=== PATIENT | male | born 1985 | race American Indian/Alaskan Native ===

== ENCOUNTER 2017-08-28 04:32 | Emergency (ER) | payer SELFPAY ==
--- NOTE | 2017-08-28 06:40 | XRay Report ---
FINAL REPORT EXAM: XR HAND 3+V RT HISTORY: laceration TECHNIQUE: Three views of the right hand were submitted. FINDINGS: There is no evidence of fracture or radiopaque foreign body. The wrist joint appears intact. There is bandage material overlying wrist and at the level of the 1st and 2nd metacarpals. IMPRESSION: No evidence of fracture or radiopaque foreign body.
--- NOTE | 2017-08-28 07:52 | Emergency Department Report ---
ED Upper Extremity Inj HPI - General Chief Complaint: Extremity Injury, Upper Stated Complaint: R HAND LAC Source: patient Mode of arrival: Ambulatory Limitations: No Limitations - History of Present Illness Initial Comments: 32 y/o M presents s/p a right thumb proximal dorsal region laceration that occured 2 days ago. Pt states that he was looking for something under the seat and there was an open razor and he lacerated the area. Pt states that he was not seen by a doctor since the incident. He states that he bumped the area on the wall yesterday and the area has not stopped bleeding. He states that he is able to move his thumb without issues. No numbness, tingling, or loss of sensation. UTD with tetanus 4 years ago. Denies any pain at the site. No fever , chills, pus, or oozing at the site was reported. Pt has not tried anything for the symptoms at this time. No lightheadedness, no dizziness. On no blood thinners or medications at this time. NKDA. NULL Complaint: Injury to:: right, hand -: days(s) (2) Other Extremity Injury: Hand: Right (at the proximal aspect of the right thumb) Other Injuries: none Handedness: left Place: home Severity scale (0 -10): 0 Context: laceration Associated Symptoms: denies: weakness, numbness, neck pain, suspects foreign body, nausea/vomiting, heard/felt popping sensat Treatments Prior to Arrival: other (none) - Related Data Previous Rx's Medication Instructions Recorded Last Taken Type Acetaminophen/Codeine 1 tab PO Q6H PRN #14 tab 10/15/14 Unknown Rx [Acetaminophen-Codeine #3 TAB] Clindamycin [Clindamycin CAP] 300 mg PO Q8H #30 cap 10/15/14 Unknown Rx Ibuprofen [Motrin 800 MG tab] 800 mg PO TID #30 tablet 10/15/14 Unknown Rx Prednisone [Prednisone 5 mg (6-Day 5 mg PO .TAPER #1 tab.ds.pk 10/15/14 Unknown Rx Pack, 21 Tabs)] Cephalexin [Keflex] 500 mg PO Q12HR #20 cap 08/28/17 Unknown Rx Allergies Allergy/AdvReac Type Severity Reaction Status Date / Time No Known Allergies Allergy Verified 10/15/14 16:57 ED Review of Systems ROS: Stated complaint: R HAND LAC Other details as noted in HPI Constitutional: denies: chills, fever Eyes: denies: eye pain, eye discharge, vision change ENT: denies: ear pain, throat pain Respiratory: denies: cough, shortness of breath, wheezing Cardiovascular: denies: chest pain, palpitations Musculoskeletal: other (bleeding at the site of laceration, 1 inch laceration) Skin: other (bleeding). denies: rash, lesions, change in color Neurological: denies: headache, weakness, paresthesias Psychiatric: denies: anxiety, depression Hematological/Lymphatic: other (not on any blood thinners) ED Past Medical Hx - Past Medical History Previous Medical History?: No - Surgical History Additional Surgical History: wrist surgery - Social History Smoking Status: Never Smoker Substance Use Type: Marijuana - Medications Home Medications: Home Medications Medication Instructions Recorded Confirmed Last Taken Type Acetaminophen/Codeine 1 tab PO Q6H PRN #14 tab 10/15/14 Unknown Rx [Acetaminophen-Codeine #3 TAB] Clindamycin [Clindamycin CAP] 300 mg PO Q8H #30 cap 10/15/14 Unknown Rx Ibuprofen [Motrin 800 MG tab] 800 mg PO TID #30 tablet 10/15/14 Unknown Rx Prednisone [Prednisone 5 mg (6-Day 5 mg PO .TAPER #1 tab.ds.pk 10/15/14 Unknown Rx Pack, 21 Tabs)] Cephalexin [Keflex] 500 mg PO Q12HR #20 cap 08/28/17 Unknown Rx ED Physical Exam - General Limitations: No Limitations General appearance: alert, in no apparent distress - Head Head exam: Present: atraumatic, normocephalic - Eye Eye exam: Present: normal appearance - Respiratory Respiratory exam: Present: normal lung sounds bilaterally. Absent: respiratory distress - Cardiovascular Cardiovascular Exam: Present: regular rate, normal rhythm. Absent: systolic murmur, diastolic murmur, rubs, gallop - Extremities Exam Extremities exam: Present: full ROM, other (a 1 inch laceration is noted at the right dorsal, proximal aspect of the right thumb, full ROM of the right thumb in all directions, there is large about of bleeding noted at the site with clotting noted, sensation is intact, cap refill is slightly delayed >2 seconds, there is no tenderness at the site, there is mild swelling noted at the site, no foreign body or tendon injury suspected). Absent: normal inspection, tenderness - Expanded Upper Extremity Exam Right Forearm Wrist exam: Present: normal inspection, full ROM Hand Wrist exam: Present: swelling, laceration, other (sensation and pulses were full and intact at the site). Absent: tenderness, abrasion, ecchymosis, deformity, crepidus, dislocation, nail avulsion Hand L/R Back: 1 - 1 inch laceration- venous bleeding, no evidence of tendon damage or arterial bleeds - Neurological Exam Neurological exam: Present: alert, oriented X3 - Psychiatric Psychiatric exam: Present: normal affect, normal mood - Skin Skin exam: Present: other (1 inch laceration with active bleeding) ED Course Vital Signs 08/28/17 08/28/17 08/28/17 04:45 04:55 12:00 Temperature 99.3 F 98.6 F Pulse Rate 83 65 Respiratory 16 1 L 18 Rate Blood Pressure 128/83 Blood Pressure 143/63 [Right] O2 Sat by Pulse 98 99 Oximetry 08/28/17 12:01 Temperature 98.6 F Pulse Rate 65 Respiratory 18 Rate Blood Pressure Blood Pressure 143/63 [Right] O2 Sat by Pulse 99 Oximetry - Reevaluation(s) Reevaluation #1: 08/28/17 07:46 Pt was evaluated by Dr. Canchola who states that he does not suspected an arterial bleed, he recommended to consult orthopedics Dr. Hill. Dr. Hill was contacted and states that he will not be able to see this patient until after a surgery case (2 hours) he states that in the meantime to clean the area and place cotton roll on the site with Tony wrap compression until he is able to come by to see the patient. Reevaluation #2: 08/28/17 21:56 Pt was evaluated by Dr. Hill around 11 AM. He examined the laceration, applied dermabond around the laceration to stop the bleeding, then used steri strips to close the wound, then gauze and several rolls of cotton was used to apply a compression dressing to the wound, then finally an TONY wrap was used. Pt was already UTD with tetanus. He was given an antibiotic for keflex. He was told to keep the dressing on for the next few days and to follow-up with Dr. Hill OP on Friday. 08/30/17 12:18 ED Medical Decision Making - Radiology Data Radiology results: report reviewed, image reviewed Left hand XR: no evidence of fracture or radiopaque foreign body. - Medical Decision Making This patient was examined by myself, Dr. Canchola, and Dr. Hill. Tetanus was UTD , I have given oral antibiotics for home for the next 10 days. Dermabound, steristrips, and compression dressing was used to help stop the bleeding by Dr. Hill. Pt was instructed to elevated this limb and folow-up with Dr. Hill OP on Friday. Pt was discharged in stable condition, no resp distress, vitals stable, neurovascularly intact. Able to speak in full sentences. Critical care attestation.: If time is entered above; I have spent that time in minutes in the direct care of this critically ill patient, excluding procedure time. ED Disposition Clinical Impression: Laceration Disposition: DC-01 TO HOME OR SELFCARE Is pt being admited?: No Does the pt Need Aspirin: No Condition: Stable Instructions: Cephalexin (By mouth), Laceration (ED) Additional Instructions: Please keep the pressure dressing on for the next few days. Please take antibiotic as indicated twice a day. Please follow-up with Dr. Hill on Friday. Follow-up with PCP within 1 week. Please return to the ER immediately with any acute worsening of your symptoms. Prescriptions: Cephalexin [Keflex] 500 mg PO Q12HR #20 cap Referrals: [facility] [Outside] - 3-5 Days [facility] [Outside] - 3-5 Days PRIMARY CAREMD [Primary Care Provider] - 3-5 Days JUWAN HILL MD [Staff Physician] - 3-5 Days Forms: Accompanied Note, Work/School Release Form(ED)
[2017-08-28 12:01] VITALS: BP 143/63
[2017-08-28] MEDS ORDERED: NACL ONE (15:17)
== END 2017-08-28 12:01 | disposition home or self-care (01) ==
LOC: ED 04:32
DX: S61.011A Laceration without foreign body of right thumb without damage to nail, initial encounter (principal); F12.10 Cannabis abuse, uncomplicated; X58.XXXA Exposure to other specified factors, initial encounter; Y93.89 Activity, other specified; Y92.89 Other specified places as the place of occurrence of the external cause; Y99.8 Other external cause status
CPT/HCPCS: 99283

== ENCOUNTER 2017-09-01 10:33 | Emergency (ER) | payer SELFPAY ==
[2017-09-01 11:07] VITALS: BP 130/70
--- NOTE | 2017-09-01 11:32 | Emergency Department Report ---
ED Recheck HPI - General Chief Complaint: Laceration/Recheck/Suture Stated Complaint: FOLLOW-UP Time Seen by Provider: 09/01/17 11:21 Source: patient Mode of arrival: Ambulatory Limitations: No Limitations - History of Present Illness Initial Comments: 32-year-old male presents for wound check. Patient states that he sustained a laceration last Friday accidentally cut left thumb region with razor while reaching underneath seat in his car. Patient sought medical attention last had Steri-Strips placed and wound was discharged with antibiotics. Presents now for wound check. Denies fever or chills, pus drainage from site. MD Complaint: wound re-check Onset/Timin -: days(s) Initial Visit For: laceration Returns Today for: wound recheck Symptoms Since Prior Visit: no new symptoms Context: planned re-check Associated Symptoms: none - Related Data Previous Rx's Medication Instructions Recorded Last Taken Type Acetaminophen/Codeine 1 tab PO Q6H PRN #14 tab 10/15/14 Unknown Rx [Acetaminophen-Codeine #3 TAB] Clindamycin [Clindamycin CAP] 300 mg PO Q8H #30 cap 10/15/14 Unknown Rx Ibuprofen [Motrin 800 MG tab] 800 mg PO TID #30 tablet 10/15/14 Unknown Rx Prednisone [Prednisone 5 mg (6-Day 5 mg PO .TAPER #1 tab.ds.pk 10/15/14 Unknown Rx Pack, 21 Tabs)] Cephalexin [Keflex] 500 mg PO Q12HR #20 cap 08/28/17 Unknown Rx Bacitracin Zinc Oint [Antibiotic 1 applicatio TP BID #1 oint...g. 09/01/17 Unknown Rx Oint] Ibuprofen [Motrin] 800 mg PO Q8HR PRN #30 tablet 09/01/17 Unknown Rx Allergies Allergy/AdvReac Type Severity Reaction Status Date / Time No Known Allergies Allergy Verified 10/15/14 16:57 ED Review of Systems ROS: Stated complaint: FOLLOW-UP Other details as noted in HPI Constitutional: denies: chills, fever Eyes: denies: eye pain, eye discharge, vision change ENT: denies: ear pain, throat pain Respiratory: denies: cough, shortness of breath, wheezing Cardiovascular: denies: chest pain, palpitations Endocrine: no symptoms reported Gastrointestinal: denies: abdominal pain, nausea, diarrhea Genitourinary: denies: urgency, dysuria Musculoskeletal: denies: back pain, joint swelling, arthralgia Skin: as per HPI (visible healing laceration overlying left thumb MCP area). denies: rash, lesions Neurological: denies: headache, weakness, paresthesias Psychiatric: denies: anxiety, depression Hematological/Lymphatic: denies: easy bleeding, easy bruising ED Past Medical Hx - Past Medical History Previous Medical History?: No - Surgical History Additional Surgical History: wrist surgery - Social History Smoking Status: Current Every Day Smoker Substance Use Type: Alcohol, Marijuana - Medications Home Medications: Home Medications Medication Instructions Recorded Confirmed Last Taken Type Acetaminophen/Codeine 1 tab PO Q6H PRN #14 tab 10/15/14 Unknown Rx [Acetaminophen-Codeine #3 TAB] Clindamycin [Clindamycin CAP] 300 mg PO Q8H #30 cap 10/15/14 Unknown Rx Ibuprofen [Motrin 800 MG tab] 800 mg PO TID #30 tablet 10/15/14 Unknown Rx Prednisone [Prednisone 5 mg (6-Day 5 mg PO .TAPER #1 tab.ds.pk 10/15/14 Unknown Rx Pack, 21 Tabs)] Cephalexin [Keflex] 500 mg PO Q12HR #20 cap 08/28/17 Unknown Rx Bacitracin Zinc Oint [Antibiotic 1 applicatio TP BID #1 oint...g. 09/01/17 Unknown Rx Oint] Ibuprofen [Motrin] 800 mg PO Q8HR PRN #30 tablet 09/01/17 Unknown Rx ED Physical Exam - General Limitations: No Limitations General appearance: alert, in no apparent distress - Head Head exam: Present: atraumatic, normocephalic - Eye Eye exam: Present: normal appearance, PERRL, EOMI - ENT ENT exam: Present: mucous membranes moist - Neck Neck exam: Present: normal inspection - Respiratory Respiratory exam: Present: normal lung sounds bilaterally. Absent: respiratory distress - Cardiovascular Cardiovascular Exam: Present: regular rate, normal rhythm. Absent: systolic murmur, diastolic murmur, rubs, gallop - GI/Abdominal GI/Abdominal exam: Present: soft, normal bowel sounds - Rectal Rectal exam: Present: deferred - Extremities Exam Extremities exam: Present: normal inspection - Expanded Upper Extremity Exam Left Hand Wrist exam: Present: laceration (healing wound left MCP joint region, no visible purulence or erythema or significant swelling) Hand L/R Back: 1 - Healing laceration here covered with Steri-Strips. No visible signs of infection no foul odor. Neuro motor exam: Present: wrist extension intact, thumb opposition intact, thumb IP flexion intact, thumb adduction intact, fingers 2-5 abduction intact, other Neurosensory exam: Present: 2-point discrimination, radial nerve intact, ulnar nerve intact, median nerve intact Vascular: Present: normal capillary refill (distal capillary refill less than one second all fingers) - Back Exam Back exam: Present: normal inspection - Neurological Exam Neurological exam: Present: alert, oriented X3 - Psychiatric Psychiatric exam: Present: normal affect, normal mood - Skin Skin exam: Present: warm, dry, intact, normal color. Absent: rash ED Course Vital Signs 09/01/17 10:59 Temperature 99 F Pulse Rate 74 Respiratory 16 Rate Blood Pressure 130/70 O2 Sat by Pulse 99 Oximetry ED Recheck MDM - Differential Diagnosis Wound Recheck, Wound Dehiscence (area less than 2 cm in length less than 1 cm in width) - Medical Decision Making A/P: Healing laceration left thumb 1-small slightly dehisced area overlying left thumb MCP region. Less than 2 cm in length less than 1 cm in width. I reapplied Steri-Strips and advised patient to observe wound site for any signs of infection including fluctuance foul odor and purulent drainage. I advised patient that it will take several days to weeks before the wound is fully healed. 2-I advised patient to finish his course of antibiotics. 3-Motrin when necessary 4- I advised the patient to follow up with Dr. Hill who examined him and initial day of injury and follow-up with wound care center. Pt has not yet followed up, i encouraged him to do so to mitigate any wound complications and for wound re-assessment. I advised him to return to ED in 1 week for wound check if he cannot f/u as an outpt. pt agreed to do so Critical care attestation.: If time is entered above; I have spent that time in minutes in the direct care of this critically ill patient, excluding procedure time. ED Disposition Clinical Impression: Visit for wound check, Healing wound Disposition: - TO HOME OR SELFCARE Is pt being admited?: No Does the pt Need Aspirin: No Condition: Stable Instructions: Laceration (ED), Acute Wound Care (ED), Chronic Wound Care (ED), Skin Adhesive Care (ED) Additional Instructions: woudn check in ED in 7 days if you cannot f/u with outpt clinics Prescriptions: Bacitracin Zinc Oint [Antibiotic Oint] 1 applicatio TP BID #1 oint...g. Ibuprofen [Motrin] 800 mg PO Q8HR PRN #30 tablet PRN Reason: Pain Referrals: [facility] [Outside] - 3-5 Days JUWAN HILL MD [Staff Physician] - 3-5 Days Forms: Work/School Release Form(ED) Time of Disposition: 11:32
== END 2017-09-01 11:49 | disposition home or self-care (01) ==
LOC: ED 10:33
DX: Z48.00 Encounter for change or removal of nonsurgical wound dressing (principal); F12.10 Cannabis abuse, uncomplicated; F17.200 Nicotine dependence, unspecified, uncomplicated
CPT/HCPCS: 99282